=== PATIENT | male | born 1995 | race African-American/Black ===

== ENCOUNTER 2018-11-10 23:30 | Emergency (ER) | payer SELFPAY ==
[2018-11-10] MEDS: NS 1,000 ML IV (23:53)
[2018-11-11 00:42] LABS: ANION GAP 11 MEQ/L (8-16); BLOOD UREA NITROGEN 14 MG/DL (7-18); CALCIUM LEVEL 8.5 MG/DL (8.5-10.1); CARBON DIOXIDE LEVEL 26 MEQ/L (21-32); CHLORIDE LEVEL 111 MEQ/L (98-107); CREATININE FOR GFR 1.03 MG/DL (0.70-1.30); GLUCOSE, FASTING 95 MG/DL (70-100); POTASSIUM SERUM 3.5 MEQ/L (3.5-5.1); SODIUM LEVEL 148 MEQ/L (136-145)
== END 2018-11-11 07:00 | disposition home or self-care (01) ==
LOC: M ED 23:30
DX: F10.129 Alcohol abuse with intoxication, unspecified (principal)
CPT/HCPCS: 70450